=== PATIENT | male | born 1945 | race Hispanic/Latino ===

== ENCOUNTER 2023-04-05 07:42 | Outpatient (CLI) | payer OTHER, MEDICAID | END 2023-04-05 07:43 | disposition home or self-care (01) | LOC: CSHULT 07:42 | PROVIDERS: ATTEND Otolaryngology Otolaryngic Allergy | DX: R22.1 Localized swelling, mass and lump, neck (principal); D17.0 Benign lipomatous neoplasm of skin and subcutaneous tissue of head, face and neck | CPT/HCPCS: 76536 ==